=== PATIENT | male | born 2000 | race Two or more races ===

== ENCOUNTER → 2024-05-24 | Outpatient (CLI) | payer OTHER | END | disposition home or self-care (01) | LOC: RAD 09:00 | PROVIDERS: ATTEND Orthopaedic Surgery Orthopaedic Surgery of the Spine | DX: M51.369 Other intervertebral disc degeneration, lumbar region without mention of lumbar back pain or lower extremity pain (principal); Z98.1 Arthrodesis status ==

== ENCOUNTER 2025-06-06 07:30 | Outpatient (CLI) | payer OTHER | END 2025-06-06 07:40 | disposition home or self-care (01) | LOC: PPH VACUNA 07:30 | PROVIDERS: ATTEND Emergency Medicine Pediatric Emergency Medicine | DX: Z23 Encounter for immunization (principal) ==